=== PATIENT | male | born 1970 | race Caucasian/White ===

== ENCOUNTER 2016-07-27 11:11 | Outpatient (RCR) | payer OTHER ==
[~2016-07-27 11:11] MED LIST: LORTAB 5/500 501 TAB PO; NO HOME MEDICATIONS
== END 2016-09-25 ==
LOC: WSOH
DX: M25.511 Pain in right shoulder (principal); X50.1XXA Overexertion from prolonged static or awkward postures, initial encounter; Y99.0 Civilian activity done for income or pay

== ENCOUNTER → 2023-12-04 | Outpatient (CLI) | payer BC ==
[~2023-12-04] MED LIST changes: +CIPRO750 MG PO; +COMPLETE MULTI1 TAB PO; +FLAGYL500 MG PO; +Iohexol 300 - 100 ML VIAL IV ONE; +NORCO 325 MG-51 TAB PO; +NS 100 ML IV SCH; +OSTEO-BI-FLEX 21 TAB PO
== END ==
LOC: COL.RAD 14:53
DX: K57.32 Diverticulitis of large intestine without perforation or abscess without bleeding (principal); R50.9 Fever, unspecified
CPT/HCPCS: Q9967